=== PATIENT | female | born 1970 | race Caucasian/White ===

== ENCOUNTER 2020-05-15 09:00 | Outpatient (REF) | payer OTHER, SELFPAY ==
[2020-05-15 10:18] LABS: MANUAL DIFF FLAG NO
[2020-05-15 10:21] LABS: Basophils Percent Auto 0.4 % (0-2); Eosinophils Absolute Auto 0.1 X10*3/uL (0.0-0.4); Eosinophils Percent Auto 1.7 % (0-4); Imm Gran Abs Auto 0.02 X10*3/uL (0.00-0.03); Imm Gran Pct Auto 0.2 % (0.0-0.4); Lymphocytes Percent Auto 24.7 % (20-40); Mean Corpuscular HGB Conc 31.7 g/dl (31.0-35.0); Mean Corpuscular Hemoglobin 29.1 pg (27.0-33.0); Mean Corpuscular Volume 91.9 fL (80-98); Mean Platelet Volume 10.6 fL (9.4-12.3); Monocytes Absolute Auto 0.6 X10*3/uL (0.1-1.2); Monocytes Percent Auto 7.1 % (2-11); Neutrophils Absolute Auto 5.3 X10*3/uL (2.0-8.3); Neutrophils Percent Auto 65.9 % (45-73); Platelet Count 311 X10*3/uL (160-400); Red Blood Count 4.46 X10*6/uL (4.20-5.50); Red Cell Distribution Width 12.6 % (11.0-16.0)
[2020-05-15 10:34] LABS: Glucose Urine UA NEG (NEG); Leukocyte Esterase Urine NEG (NEG); Nitrite Urine NEG (NEG); PH 6.5 (5.0-8.0); Specific Gravity - Urine 1.015 (1.005-1.025); Urine Blood TRACE (NEG); Urine Ketones NEG (NEG); Urine Protein NEG (NEG-TRACE)
[2020-05-15 10:39] LABS: Appearance Urine CLEAR; Color Urine YELLOW
[2020-05-15 10:55] LABS: Alanine Aminotransferase 16 U/L (0-31); Albumin Level 4.3 g/dL (3.5-5.0); Alkaline Phosphatase 108 U/L (39-117); Anion Gap 12 (12-20); Aspartate Amino Transferase 14 U/L (5-31); Bilirubin Total 0.3 mg/dL (0.0-1.0); Blood Urea Nitrogen 14 mg/dL (9-16); Calcium 8.7 mg/dL (8.4-10.2); Carbon Dioxide 26 mmol/L (22-29); Chloride 106 mmol/L (96-108); Estimated Glomerular Filt Rate > 60; Glucose Random 80 mg/dL (60-115); Potassium 4.5 mmol/l (3.3-5.1); Sodium 139 mmol/L (135-145); Total Protein 6.7 g/dL (6.5-8.0)
[2020-05-15 11:00] LABS: TSH reflex Free T4 1.87 mIU/mL (0.32-4.0)
[2020-05-15 11:01] LABS: HBsAGNum1 0.26 S/CO (0.00-0.99); Hepatitis B Surface Antigen Negative (Negative); ~HepC Num1 0.06 S/CO (0.00-0.79); ~Hepatitis C Antibody Nonreactive (Nonreactive)
[2020-05-15 11:02] LABS: Bacteria Urine TRACE /LPF; Squamous Epithelial Cell Urine 1+ /LPF; WBC Urine 0-2 /HPF (0-4)
[2020-05-15 11:20] LABS: HBS Num1 0.44 mIU/mL (0-7.99); HBc Num1 0.11 S/CO (0.00-0.79); Hepatitis B Core Antibody Nonreactive (Nonreactive); ~Hepatitis B Surface Antibody NONREACTIVE (Nonreactive)
[2020-05-16 04:10] LABS: Hepatitis A Antibody IgM 0.13 Index (0-0.79); ~Hepatitis A Antibody IgM Nonreactive (Nonreactive)
[2020-05-23 18:07] LABS: Calprotectin, Fecal 15 mcg/g
== END 2020-05-15 09:01 | disposition home or self-care (01) ==
LOC: HO.LAB 09:00
PROVIDERS: PCP Internal Medicine; Visit Provider Internal Medicine Gastroenterology
DX: R10.13 Epigastric pain (principal); R30.0 Dysuria
CPT/HCPCS: 36415; 80053; 81001; 83993; 84443; 85025; 86704; 86706; 86709; 86803; 87338; 87340

== ENCOUNTER → 2020-08-10 08:38 | Outpatient (BNVA) | payer OTHER, SELFPAY | PROVIDERS: PCP Internal Medicine; Visit Provider Student in an Organized Health Care Education/Training Program | DX: M79.7 Fibromyalgia (principal) | CPT/HCPCS: 99202 ==

== ENCOUNTER → 2020-09-28 08:44 | Outpatient (BNVA) | payer OTHER, SELFPAY | PROVIDERS: Visit Provider Student in an Organized Health Care Education/Training Program ==

== ENCOUNTER → 2021-01-15 08:27 | Outpatient (BNVA) | payer OTHER, SELFPAY | PROVIDERS: PCP Internal Medicine; Visit Provider Internal Medicine Gastroenterology | CPT/HCPCS: Q3014 ==

== ENCOUNTER → 2021-01-23 07:49 | Outpatient (BNVA) | payer OTHER, SELFPAY | PROVIDERS: PCP Internal Medicine; Visit Provider Internal Medicine Gastroenterology | DX: R10.9 Unspecified abdominal pain (principal) | CPT/HCPCS: 91110 ==

== ENCOUNTER → 2021-04-23 09:51 | Outpatient (BNVA) | payer OTHER, SELFPAY | PROVIDERS: PCP Internal Medicine; Visit Provider Internal Medicine Gastroenterology | CPT/HCPCS: Q3014 ==

== ENCOUNTER → 2021-07-19 08:04 | Outpatient (BNVA) | payer OTHER, SELFPAY | PROVIDERS: PCP Internal Medicine; Visit Provider Internal Medicine Gastroenterology | DX: R10.13 Epigastric pain (principal) | CPT/HCPCS: 99212 ==

== ENCOUNTER 2021-08-15 07:50 | Outpatient (REF) | payer OTHER, SELFPAY ==
--- NOTE | ~2021-08-15 | US_ITS ---
EXAMINATION: US COMPLETE ABDOMEN WITH LIVER ELASTOGRAPHY CLINICAL INFORMATION: Epigastric pain. COMPARISON: None. TECHNIQUE: Real-time imaging of the abdominal viscera. Noninvasive ultrasound liver fibrosis assessment is performed using Abhishek ElastPQ point quantification shear wave elastography (2D-SWE) with a C5-2 MHz transducer. Multiple elastography samples are obtained. FINDINGS: PANCREAS: Normal. The visualized pancreatic head and body are normal in appearance. The remainder of the pancreas is obscured from visualization by the overlying bowel gas. ABDOMINAL AORTA: The proximal, middle, and distal aortic segments are normal in caliber. INFERIOR VENA CAVA: Visualized portions are normal. LIVER: The liver demonstrates normal size, contour and increased echogenicity. No focal lesion or intrahepatic biliary duct dilatation. The right lobe measures 16.7 cm in length. The left lobe measures 11.9 cm in length. Portal flow is hepatopedal. Shear wave liver elastography median stiffness is 1.33 m/s (reference: normal median stiffness is 1.3 m/s or less). IQR/median stiffness to assess sampling precision is 1.05 (reference: good quality data set is IQR/median stiffness of 0.15 or less). GALLBLADDER: Normal. The gallbladder is physiologically distended without evidence of stones, sludge, polyps, wall thickening or pericholecystic fluid. COMMON BILE DUCT: Normal in caliber measuring 0.3 cm in diameter. RIGHT KIDNEY: Normal. No hydronephrosis. No renal calculi or focal parenchymal lesions. The kidney measures 11.0 cm in maximum dimension. LEFT KIDNEY: There is an anechoic cyst upper/mid pole measuring 0.8 x 0.5 x 0.6 cm. No hydronephrosis. No renal calculi or focal parenchymal lesions. The kidney measures 10.7 cm in maximum dimension. SPLEEN: Normal. The spleen measures 10.5 cm in maximum dimension. FREE FLUID: None. US/US abdomen comp w elastography IMPRESSION: 1. Diffuse hepatic steatosis without any focal lesion. 2. Cysts upper/mid pole left kidney. 3. Liver elastography: Median liver stiffness is 1.33m/s suggestive of high probability normal. REFERENCE: Society of Radiologists in Ultrasound Liver Stiffness Thresholds (2020): LIVER STIFFNESS THRESHOLDS: *Liver Stiffness equal or less than 1.3 m/s: High probability of being normal. *Liver Stiffness less than 1.7 m/s: In the absence of other known clinical signs, rules out compensated advanced chronic liver disease. *Liver Stiffness 1.7-2.1 m/s: Suggestive of compensated advanced chronic liver disease but need further test for confirmation. *Liver Stiffness over 2.1 m/s: Rules in compensated advanced chronic liver disease. *Liver Stiffness over 2.4 m/s: Suggestive of clinically significant portal hypertension. QUALITY OF DATA SET: *IQR/Median value equal or less than 0.15 implies a quality data set. *IQR/Median value over 0.15 implies a poor quality data set. SIGNIFICANT CHANGE FROM PRIOR EXAM: Significant change if liver stiffness measurement is 10% or greater from prior exam. OTHER CONSIDERATIONS: The stage of liver fibrosis may be overestimated in the setting of acute hepatitis, liver inflammation, elevated liver function tests, hepatic vascular congestion, obstructive cholestasis, non-fasting state, and infiltrative diseases such as amyloidosis and lymphoma. In some patients with NAFLD, the liver stiffness thresholds for compensated advanced chronic liver disease may be lower. In causes other than viral hepatitis and NAFLD, liver stiffness thresholds are not well established.
[2021-08-15 08:32] LABS: Gamma Glutamyl Transpeptidase 41 U/L (7-33)
[2021-08-16 15:26] LABS: Immunoglobulin G 1014 mg/dL (600-1640)
[2021-08-20 08:21] LABS: Transglutaminase Ab IgG <1.0 U/mL
[2021-08-20 09:42] LABS: Anti Nuclear Antibody Screen POSITIVE (NEGATIVE)
[2021-08-20 14:11] LABS: Soluble Liver Ag Autoantibody <20.1 U (0.0-20.0)
[2021-08-21 15:17] LABS: Mitochondrial Antibodies NEGATIVE (NEGATIVE)
[2021-08-21 16:11] LABS: Angiotensin Converting Enzyme 18.7 U/L (9-67)
[2021-08-21 21:52] LABS: Smooth Muscle Antibody <20 U (<20)
[2021-08-22 21:06] LABS: Alk.Phos Iso. Macrohepatic 0 % (<=0); Alk.Phos Isoenzymes Bone 32 % (28-66); Alk.Phos Isoenzymes Intest 5 % (1-24); Alk.Phos Isoenzymes Liver 63 % (25-69); Alk.Phos Isoenzymes Placental 0 % (<=0); Alk.Phos Isoenzymes Total 112 U/L (37-153)
== END 2021-08-15 07:51 | disposition home or self-care (01) ==
LOC: HO.US 07:50
PROVIDERS: Visit Provider Internal Medicine Gastroenterology
DX: R10.13 Epigastric pain (principal); R10.33 Periumbilical pain; G89.29 Other chronic pain; R79.89 Other specified abnormal findings of blood chemistry; K52.839 Microscopic colitis, unspecified; R79.82 Elevated C-reactive protein (CRP)
CPT/HCPCS: 36415; 76705; 76981; 82164; 82784; 82977; 83520; 84080; 86015; 86038; 86039; 86255; 86256; 86364

== ENCOUNTER → 2021-12-20 09:12 | Outpatient (BNVA) | payer OTHER, SELFPAY | PROVIDERS: PCP Internal Medicine; Visit Provider Internal Medicine Gastroenterology | DX: Z71.2 Person consulting for explanation of examination or test findings (principal) | CPT/HCPCS: Q3014 ==

== ENCOUNTER → 2022-03-10 08:47 | Outpatient (BNVA) | payer OTHER, SELFPAY | PROVIDERS: PCP Internal Medicine; Visit Provider Internal Medicine Gastroenterology | DX: R10.13 Epigastric pain (principal); R79.89 Other specified abnormal findings of blood chemistry | CPT/HCPCS: Q3014 ==

== ENCOUNTER 2022-10-24 09:17 | Outpatient (REF) | payer OTHER, SELFPAY ==
[2022-10-24 10:14] LABS: MANUAL DIFF FLAG NO
[2022-10-24 10:30] LABS: Basophils Percent Auto 0.3 % (0-2); Eosinophils Absolute Auto 0.2 X10*3/uL (0.0-0.4); Eosinophils Percent Auto 2.4 % (0-4); Hematocrit 39.2 % (37.0-47.0); Hemoglobin 12.4 g/dl (12.0-16.0); Imm Gran Abs Auto 0.02 X10*3/uL (0.00-0.03); Imm Gran Pct Auto 0.3 % (0.0-0.4); Lymphocytes Percent Auto 26.5 % (20-40); Mean Corpuscular HGB Conc 31.6 g/dl (31.0-35.0); Mean Corpuscular Volume 88.5 fL (80.0-98.0); Mean Platelet Volume 10.2 fL (9.4-12.3); Monocytes Absolute Auto 0.4 X10*3/uL (0.1-1.2); Monocytes Percent Auto 4.9 % (2-11); Neutrophils Absolute Auto 4.8 x10*3/uL (2.0-8.3); Neutrophils Percent Auto 65.6 % (45-73); Platelet Count 315 X10*3/uL (160-400); Red Blood Count 4.43 X10*6/uL (4.20-5.50); Red Cell Distribution Width 12.9 % (11.0-16.0); White Blood Count 7.4 X10*3/uL (4.8-10.8)
[2022-10-24 10:55] LABS: Prothrombin Time 11.5 SEC (10.0-13.1)
[2022-10-24 11:09] LABS: Alanine Aminotransferase 18 U/L (0-31); Albumin Level 3.9 g/dL (3.5-5.0); Alkaline Phosphatase 118 U/L (39-117); Anion Gap 11 (12-20); Aspartate Amino Transferase 14 U/L (5-31); Bilirubin Total 0.4 mg/dL (0.0-1.0); Blood Urea Nitrogen 14 mg/dL (9-16); Calcium 9.5 mg/dL (8.4-10.2); Carbon Dioxide 26 mmol/L (22-29); Chloride 107 mmol/L (96-108); Estimated Glomerular Filt Rate > 60; Glucose Random 122 mg/dL (60-115); Potassium 3.9 mmol/L (3.3-5.1); Sodium 140 mmol/L (135-145); Total Protein 6.9 g/dL (6.5-8.0)
[2022-10-24 11:30] LABS: Ferritin 85 ng/mL (10-250); Vitamin D 25-OH Total 50.5 ng/mL (>30)
[2022-10-24 11:33] LABS: Folate 16.4 ng/mL (> or = 4.0); Vitamin B12 628 pg/mL (200-900)
[2022-10-29 03:44] LABS: Zinc 79 mcg/dL (60-130)
[2022-10-30 02:43] LABS: Vitamin A 68 mcg/dL (38-98)
[2022-10-30 02:43] LABS: Alpha-Tocopherol 15.5 mg/L (5.7-19.9); Beta-Gamma Tocopherol <1.0 mg/L (<=4.3)
[2022-10-31 14:38] LABS: Vitamin B6 4.8 ng/mL (2.1-21.7)
[2022-10-31 16:17] LABS: Vitamin C 0.8 mg/dL (0.3-2.7)
[2022-10-31 16:39] LABS: Vitamin K1 278 pg/mL (130-1500)
[2022-11-01 20:44] LABS: Nicotinamide 29 ng/mL; Vit B3 - Nicotinic Acid <20 ng/mL
[2022-11-01 21:34] LABS: Vitamin B5 (Pantothenic Acid) 48 ng/mL (<275)
[2022-11-03 00:18] LABS: Vitamin B1 10 nmol/L (8-30)
== END 2022-10-24 09:18 | disposition home or self-care (01) ==
LOC: HO.LAB 09:17
PROVIDERS: Visit Provider Internal Medicine Gastroenterology
DX: R10.13 Epigastric pain (principal); K75.81 Nonalcoholic steatohepatitis (NASH); E46 Unspecified protein-calorie malnutrition; M25.50 Pain in unspecified joint; R79.89 Other specified abnormal findings of blood chemistry
CPT/HCPCS: 36415; 80053; 82180; 82306; 82607; 82728; 82746; 83735; 84207; 84425; 84446; 84590; 84591; 84597; 84630; 85025; 85610; 99212

== ENCOUNTER 2022-11-12 08:53 | Outpatient (REF) | payer OTHER, SELFPAY ==
--- NOTE | ~2022-11-12 | US_ITS ---
EXAMINATION: US ABDOMEN LIMITED WITH LIVER ELASTOGRAPHY CLINICAL INFORMATION: COCHRAN. COMPARISON: None available. TECHNIQUE: Real-time imaging of the abdominal viscera. Noninvasive ultrasound liver fibrosis assessment is performed using Abhishek ElastPQ point quantification shear wave elastography (2D-SWE) with a C5-2 MHz transducer. Multiple elastography samples are obtained. FINDINGS: PANCREAS: Normal. The visualized pancreatic head and body are normal in appearance. The remainder of the pancreas is obscured from visualization by the overlying bowel gas. LIVER: There is increased echogenicity consistent with fatty infiltration/hepatocellular disease. No focal mass or intrahepatic bile duct dilatation is seen. The right lobe measures 16.7 cm in length. The left lobe measures 11.6 cm in length. Portal flow is hepatopedal. Shear wave liver elastography median stiffness is 1.32 m/s (reference: normal median stiffness is 1.3 m/s or less). IQR/median stiffness to assess sampling precision is 0.13 (reference: good quality data set is IQR/median stiffness of 0.15 or less). GALLBLADDER: Normal. The gallbladder is physiologically distended without evidence of stones, sludge, polyps, wall thickening or pericholecystic fluid. COMMON BILE DUCT: Normal in caliber measuring 0.5 cm in diameter. RIGHT KIDNEY: Normal. No hydronephrosis. No renal calculi or focal parenchymal lesions. The kidney measures 11.4 cm in maximum dimension. FREE FLUID: None. US/US abdomen guan w elastography IMPRESSION: 1. Findings consistent with fatty infiltration/hepatocellular disease of the liver. 2. Liver elastography: In the absence of other known clinical signs, measurements rule out compensated advanced chronic liver disease. If there are known clinical signs, further testing may be needed for confirmation. Liver stiffness measurement is without significant change from prior exam (change under 10%). REFERENCE: Society of Radiologists in Ultrasound Liver Stiffness Thresholds (2020): LIVER STIFFNESS THRESHOLDS: *Liver Stiffness equal or less than 1.3 m/s: High probability of being normal. *Liver Stiffness less than 1.7 m/s: In the absence of other known clinical signs, rules out compensated advanced chronic liver disease. *Liver Stiffness 1.7-2.1 m/s: Suggestive of compensated advanced chronic liver disease but need further test for confirmation. *Liver Stiffness over 2.1 m/s: Rules in compensated advanced chronic liver disease. *Liver Stiffness over 2.4 m/s: Suggestive of clinically significant portal hypertension. QUALITY OF DATA SET: *IQR/Median value equal or less than 0.15 implies a quality data set. *IQR/Median value over 0.15 implies a poor quality data set. SIGNIFICANT CHANGE FROM PRIOR EXAM: Significant change if liver stiffness measurement is 10% or greater from prior exam. OTHER CONSIDERATIONS: The stage of liver fibrosis may be overestimated in the setting of acute hepatitis, liver inflammation, elevated liver function tests, hepatic vascular congestion, obstructive cholestasis, non-fasting state, and infiltrative diseases such as amyloidosis and lymphoma. In some patients with NAFLD, the liver stiffness thresholds for compensated advanced chronic liver disease may be lower. In causes other than viral hepatitis and NAFLD, liver stiffness thresholds are not well established.
== END 2022-11-12 08:54 | disposition home or self-care (01) ==
LOC: HO.US 08:53
PROVIDERS: PCP Internal Medicine; Visit Provider Internal Medicine Gastroenterology
DX: E46 Unspecified protein-calorie malnutrition (principal); K74.60 Unspecified cirrhosis of liver; K75.81 Nonalcoholic steatohepatitis (NASH); M25.50 Pain in unspecified joint; R10.13 Epigastric pain; R79.89 Other specified abnormal findings of blood chemistry
CPT/HCPCS: 76705; 76981

== ENCOUNTER 2024-09-05 10:57 | Outpatient (AMB) | payer OTHER, SELFPAY ==
--- NOTE | 2024-09-05 11:09 | MHC.OFFVIS ---
Vital Signs 09/05/24 11:21 09/05/24 11:25 Height 5 ft 6 in 5 ft 6 in Weight 241 lb BMI 38.9 BP 153/79 H Blood Pressure Location Lt brachial Lt brachial Position Sitting Sitting Pulse 72 Pulse Oximetry (%) 98 Oxygen Delivery Method Room Air Intake Visit Reasons: GERD f/u Intake Note: Iris presents in the office as a follow up for GERD. Patient cc: GERD and constipation. Administrative Program Specialist Required: No Accompanied by: Self / Same As Patient Allergies acetaminophen [Percocet] Allergy (Intermediate, Verified 09/05/24 11:23) Anaphylaxis morphine Allergy (Intermediate, Verified 09/05/24 11:23) Anaphylaxis oxycodone Allergy (Unknown, Verified 09/05/24 11:23) Anaphylaxis HPI HPI GERD f/u: Details: 53 y/o f w/ hx of anxiety, fibromyalgia, asthma, ERIC, and hysterectomy being seen for f/u RECAP: Hx of cholecystectomy and c diff 2017 had vancomycin for c diff EGD/colon 2013- active colitis and mild gastric inflammation tried on PPI, pepcid She was having c/o ongoing abdominal pain, feels like burning, or stabbing sometimes, can be 10/10, going on for 5 years, worse with bending and lifting ongoing trouble swallowing (had u/s neck was normal by PCP) no blood, stool is normal, better since trying metamucil and miralax was given rifaximin with some benefitshe modifies diet which is easily digested kenalog injection given which resolved her abdo pain on right flank she was taking welchol and helped diarrhea At visit:05/06/19=== GERD and diarrhea were well controlle,d she had no complaints VCE was ordered and was normal apart from rapid transit US: 08/2021- fatty liver, renal cysts, labs with nml LFT Ba swallow: 10/2021 hiatal hernia 4 cm with GERD INTERIM: she has a lot of stress, going thru marital issues she has issues with constipation she takes lansoprazoole and it helps she finds miralax is good for the constiipation sleep is good EXAM: GENERAL: The patient is well developed and nontoxic. VITAL SIGNS:see workflow HEENT: Nonicteric sclerae, PERRLA, EOMI. Oropharynx clear. Moist mucous membranes. Conjunctivae appear well perfused. No thyroid mass. CHEST: Chest wall is nontender. HEART: Regular rate and rhythm without murmurs. LUNGS: Clear to auscultation bilaterally. ABDOMEN: Soft, positive bowel sounds, nontender, no organomegaly.no flank tenderness SKIN: No rash, no excessive bruising, petechiae, or purpura. NEUROLOGIC: Cranial nerves II-XII intact without motor/sensory deficit. Psych- nml A/P: 1/ rapid gastric emptying and GERD, some ongoing regurgitation 2/ fatty liver, nml LFT in past 3/ constipation - she wants to hold on colonoscopy PLAN: 1/ she refuses EGD and wants to hold on colonoscopy, 2/ will try miralax again once or tiwce a day with high fiber intake and increase water to 5-6 glasses a day 3/ Us liver and lab work [facility] Medical History Anxiety Asthma Fibromyalgia GERD (gastroesophageal reflux disease) History of Holter monitoring Surgical History Hx of hysterectomy Hx of colonoscopy Hx of endoscopy Hx laparoscopic cholecystectomy Family History Father Stomach cancer Brother No problems noted. Sister No problems noted. Son No problems noted. Social History Alcohol intake: never Physical Exam Vital Signs: Last Vital Signs Pulse 72 09/05/24 11:25 BP 153/79 H 09/05/24 11:25 Pulse Ox 98 09/05/24 11:25 Oxygen Delivery Method Room Air 09/05/24 11:25 BMI result Body Mass Index 38.9 Assessment & Plan Assessment & Plan (1) Abnormal LFTs: Code(s): R79.89 - Other specified abnormal findings of blood chemistry Category: Medical Plan: as above Orders: Orders Complete Blood Count Auto Diff Today R79.89 - Other specified abnormal findings of blood chemistry Liver Fibrosis Pnl Today R79.89 - Other specified abnormal findings of blood chemistry Comprehensive Met. Panel Today K75.81 - Nonalcoholic steatohepatitis (COCHRAN), R79.89 - Other specified abnormal findings of blood chemistry TSH reflex Free T4 Today R79.89 - Other specified abnormal findings of blood chemistry US abdomen guan w elastography Today K74.60 - Unspecified cirrhosis of liver, K75.81 - Nonalcoholic steatohepatitis (COCHRAN), R79.89 - Other specified abnormal findings of blood chemistry Medications: Refilled polyethylene glycol 3350 (Miralax) 17 grams PO DAILY 510 grams 3RF Coding Level of Care Code Est Pt Level 4 (64050) Diagnoses Abnormal LFTs R79.89
[2024-09-05 11:25] VITALS: BP 153/79; PULSE 72; O2SAT 98; BMI 38.9
--- OUTSIDE RECORDS SUMMARY | 2024-09-05 13:11 | XMS_ITS | Clinical Summary ---
Author Organization [facility] ity Address [address] [place] [address] Care Team Providers Care Database Management Specialist Name Role Phone Unavailable Primary Care Provider Unavailabl e Social History Tobacco Use Types Packs/Day Years Used Date Smoking Tobacco: Never Assessed Comments Unknown Sex and Gender Information Value Date Recorded Sex Assigned at Not on file Legal Sex Female 5:40 PM EST Gender Identity Not on file Sexual Orientation Not on file Plan of Treatment Health Maintenance Due Date Last Done Comments Breast Cancer Screening 1969 DTaP,Tdap,and Td Vaccines (1 - Tdap) 1988 Hepatitis B Vaccines (1 of 3 - 19+ 3-dose series) 1988 Cervical Cancer Screening: P ap Smear 1990 Pneumococcal Vaccine: 50+ Ye ars (1 of 1 - PCV) 09/10/2019 Zoster Vaccines (1 of 2) 09/10/2019 COVID-19 Vaccine ( - 2023-2 5 season) 2024 Influenza Vaccine (Season Ended) 2025 HIB Vaccines Aged Out No longer eligi ble based on patient's age to complete this topic HPV Vaccines Aged Out No longer eligi ble based on patient's age to complete this topic Hepatitis A Vaccines Aged Out No long er eligible based on patient's age to complete this topic IPV Vaccines Aged Out No longer eligi ble based on patient's age to complete this topic MMR Vaccines Aged Out No longer eligi ble based on patient's age to complete this topic Meningococcal ACWY Vaccine Aged Out N o longer eligible based on patient's age to complete this topic Meningococcal B Vaccine Aged Out No l onger eligible based on patient's age to complete this topic Pneumococcal Vaccine: Pediat rics (0 to 5 Years) and At-Risk Patients (6 to 64 Years) Aged Out No longer eligible b ased on patient's age to complete this topic RSV Immunization Patients Un nick 20 months Aged Out No longer eligible b ased on patient's age to complete this topic Varicella Vaccines Aged Out No longer eligible based on patient's age to complete this topic
== END 2024-09-05 12:01 | disposition home or self-care (01) ==
LOC: HO.HGI 10:57
PROVIDERS: PCP Internal Medicine; Visit Provider Internal Medicine Gastroenterology
DX: R79.89 Other specified abnormal findings of blood chemistry (principal)
CPT/HCPCS: 99214

== ENCOUNTER → 2024-09-05 10:57 | Outpatient (BNVA) | payer OTHER, SELFPAY | PROVIDERS: PCP Internal Medicine; Visit Provider Internal Medicine Gastroenterology | DX: R79.89 Other specified abnormal findings of blood chemistry (principal); K74.60 Unspecified cirrhosis of liver; K21.9 Gastro-esophageal reflux disease without esophagitis; K75.81 Nonalcoholic steatohepatitis (NASH) | CPT/HCPCS: 99212 ==

== ENCOUNTER 2024-09-06 07:10 | Outpatient (REF) | payer OTHER, SELFPAY ==
--- OUTSIDE RECORDS SUMMARY | 2024-09-06 07:13 | XMS_ITS | Data Portability ---
Author Organization [facility] [place] [facility] Address [address] [place] [id number] Care Team Providers Care Brainer Name Role Phone HIM [place] OTHER Assessment Encounter Date Assessment Date Assessment LastModified by Organization Details LastModified Time 08/20/2023 08/20/2023 I provided real -time medical direction via phone for this encounter and was available for additional phone-based assistance as needed. I have reviewed and agree with the Assessment and Plan as documented by the Tennis Ball Coverer Hand. Patient given the opportunity to ask questions. Our service contacted for an assessment of: recurrent swelling of her finger As per above, patient developed what sounds like may have started as a nail infection and then progressed to localized swelling of her finger that had to be I&D in the emergency department. She was sent home on antibiotics and continues to take the antibiotics as prescribed. She noted over the past 12 to 18 hours and increase in the swelling again passed the point where it had previously been swollen. Please see uploaded pictures. She denies fever or chills. Per senior auditor on the scene, Her fingers significantly slow swollen and there is surrounding erythema. Impression: Recurrent swelling and possible recurrence of a drainable fluid collection Plan: sent to urgent care for reassessment of an I&D. [email or web address] Not available 08/20/2023 14:16:39 Plan of Treatment Reminders Order Date Submit Date Provider Last Modified By Organization Details Last Modified Time Details Appointments None record ed. Lab None record ed. Referral None record ed. Procedures None record ed. Surgeries None record ed. Imaging None record ed. Medication Orders None record ed. Patient TargetsNo targets recorded. Patient InstructionsNo instructions recorded. Reason for Referral None Reported. Medical Equipment None Reported. Medications Name Sig Start Date Stop Date Status Note LastModified by Organization Details LastModified Time delivery fee active Not Available Not Available Not Available cyclobenzapri ne 10 mg tablet active Not Available Not Available Not Available atorvastatin 40 mg tablet active Not Available Not Available Not Available metformin 500 mg tablet active Not Available Not Available No t Available clonidine HCl 0.1 mg tablet active Not Available Not Availabl e Not Available atorvastatin 20 mg tablet active Not Available Not Available Not Available prazosin 1 mg capsule active Not Available Not Available Not Available naltrexone 50 mg tablet active Not Available Not Available No t Available famotidine 40 mg tablet active Not Available Not Available No t Available methylphenida te 5 mg tablet active Not Available Not Available Not Available topiramate 25 mg tablet TAKE 2 TABLETS BY MOUTH TWICE DAILY active Not Available Not Available No t Available sulfamethoxaz ole 800 mg-trimethopr im 160 mg tablet active Not Available Not Available Not Available famotidine 20 mg tablet active Not Available Not Available No t Available dicyclomine 20 mg tablet active Not Available Not Available Not Available carboxymethyl cellulose sodium 0.5 % eye drops active Not Available Not Available No t Available fluvoxamine 100 mg tablet active Not Available Not Availabl e Not Available cephalexin 500 mg capsule active Not Available Not Available Not Available buspirone 10 mg tablet active Not Available Not Available No t Available lansoprazole 30 mg capsule,delay ed release active Not Available Not Available N ot Available montelukast 10 mg tablet active Not Available Not Available Not Available metoprolol succinate ER 25 mg tablet,extend ed release 24 hr TAKE 1 TABLET BY MOUTH DAILY active Not Available Not Available No t Available polyethylene glycol 3350 17 gram/dose oral powder active Not Available Not Available Not Available albuterol sulfate HFA 90 mcg/actuation aerosol inhaler INHALE 2 PUFFS BY MOUTH EVERY 6 HOURS NEEDED FOR WHEEZING OR SHORTNESS OF BREATH active Not Available Not Available No t Available hydroxyzine HCl 10 mg tablet active Not Available Not Available Not Available topiramate 100 mg tablet active Not Available Not Availabl e Not Available metformin ER 500 mg tablet,extend ed release 24 hr TAKE 1 TABLET BY MOUTH DAILY ALONG EVENING MEAL active Not Available Not Available No t Available topiramate 50 mg tablet active Not Available Not Available No t Available aripiprazole 2 mg tablet active Not Available Not Available Not Available Symbicort 160 mcg-4.5 mcg/actuation HFA aerosol inhaler INHALE 2 PUFFS BY MOUTH TWICE DAILY active Not Available Not Available No t Available cholecalcifer ol (vitamin D3) 1,250 mcg (50,000 unit) capsule active Not Available Not Available Not Available estradiol 10 mcg vaginal tablet active Not Available Not Available Not Available Vitals Date Recorded Respiratory rate Oxygen saturation Oxygen saturation in Arterial blood by Pulse oximetry Body temperature Heart rate Systolic blood pressure Diastolic blood pressure Provider Name and Address Organization Details Last Updated DateTime 4 18 /min 96 % 96 % 98.3 [degF] 94 /min 116 mm[Hg] 78 mm[Hg] Not Available [facility] - production 4 14:13:10 Social History None recorded. Functional Status None recorded. Mental Status None recorded. Family History Nothing Reported. Medical History No medical history recorded. Gynecological HistoryNo gynecological history recorded. Obstetrics History GPAL:G 0 P 0 0 0 0 Past Encounters Encounter ID Performer Location Encounter Start Date Encounter Closed Date Diagnosis/Indication Diagnosis SNOMED-CT Code Diagnosis ICD10 Code Diagnosis Note [id number] Sara Clarke MD Main - [address] [address] 08/20/2023 14:13:01 08/20/2023 14:51:28 Swelling of finger of right hand [id number] R60.0 Health Concerns Section Related Observation LastModified by Organization Detai ls LastModified Time None Recorded Concern Status LastModified by Organization Details LastModified Time None Recorded Advance Directives Directive None Recorded Payers Encounter Date Sequence Insurance Name Policy Number Policy [place] Covered Member ID [place] Member ID Guarantor Name 08/20/2023 1 [facility] - DOS ON OR AFTER 2022 - DUAL ELIGIBLE - NURSING HOME OPTIONS AND ONE CARE (MEDICARE REPLACEMENT/ADV ANTAGE - HMO) Michelle Sheikh [id number] Michelle Sheikh Notes Date Note Type Note Provider Name and Address Organization Details Recorded Time 08/20/2023 text/html [facility] Nurse Triage Notes (Harvinder Vale): Reason For Request: Pt reporting her left hand ring finger has been pinched but that she went to the ER and was given antibiotics>under the impression Chief Complaints: Wound Care Comments: Wound care requested =HPI reviewed ..................... ..................... ..................... ..................... ..................... ..................... ............... Tennis Ball Coverer Hand Note From Dash Howell: Dispatched to above address for infection of finger. On arrival patient 52 y/o F, met SC8 at the door, AOX4, airway patent, speaking in full sentences, good color, in no apparent distress, walking unassisted with normal gait. Patient states about 3 weeks ago was doing some yard work, later in the day began having some minor pain and swelling in tip of L ring finger, has been getting worse, went to the ER on Thursday for this has I&D performed and prescribed ABX, has been getting worse again since. Patients vital signs checked. On exam patients L ring finger very swollen red and warm to touch, small healing laceration on the inside of her finger., limited mobility, rates pain as 9/10. [facility] contacted, spoke with Dr. Clarke, advised of patient complaints and exam findings, advised patient likely need additional I&D, needs to be seen at the ER for this. Patient advised of [facility] recommendations and red flags. Patient reports she will drive herself to the ER for this, refuses ambulance. Patient has no additional questions or concerns at this time. SC8 clear. EOR. ..................... ..................... ..................... ..................... ..................... ..................... ............... Disposition: Fulfilled Sara Clarke MD [address] [facility],[address], [place], [address], [facility] [facility] 08/20/2023 14:16:55 OBGyn Episode No OBEpisode recorded.
--- OUTSIDE RECORDS SUMMARY | 2024-09-06 07:13 | XMS_ITS | Clinical Summary ---
Author Organization [facility] ity Address [address] [place] [address] Care Team Providers Care Crepe Sole Scourer Name Role Phone Unavailable Primary Care Provider [...]
[2024-09-06 07:23] LABS: MANUAL DIFF FLAG NO
[2024-09-06 08:26] LABS: Basophils Percent Auto 0.6 % (0-2); Eosinophils Absolute Auto 0.3 X10*3/uL (0.0-0.4); Eosinophils Percent Auto 4.3 % (0-4); Hematocrit 38.6 % (37.0-47.0); Hemoglobin 12.3 g/dl (12.0-16.0); Imm Gran Abs Auto 0.01 X10*3/uL (0.00-0.03); Imm Gran Pct Auto 0.2 % (0.0-0.4); Lymphocytes Absolute Auto 2.3 X10*3/uL (1.2-4.9); Lymphocytes Percent Auto 36.1 % (20-40); Mean Corpuscular HGB Conc 31.9 g/dl (31.0-35.0); Mean Corpuscular Hemoglobin 28.6 pg (27.0-33.0); Mean Corpuscular Volume 89.8 fL (80.0-98.0); Mean Platelet Volume 10.2 fL (9.4-12.3); Monocytes Absolute Auto 0.4 X10*3/uL (0.1-1.2); Monocytes Percent Auto 6.2 % (2-11); Neutrophils Absolute Auto 3.3 x10*3/uL (2.0-8.3); Neutrophils Percent Auto 52.6 % (45-73); Platelet Count 293 X10*3/uL (160-400); Red Cell Distribution Width 13.1 % (11.0-16.0); White Blood Count 6.3 X10*3/uL (4.8-10.8)
[2024-09-06 09:29] LABS: Alanine Aminotransferase 14 U/L (0-31); Albumin Level 3.9 g/dL (3.5-5.0); Alkaline Phosphatase 101 U/L (39-117); Anion Gap 11 (12-20); Aspartate Amino Transferase 17 U/L (5-31); Bilirubin Total 0.4 mg/dL (0.0-1.0); Blood Urea Nitrogen 14 mg/dL (9-16); Carbon Dioxide 30 mmol/L (22-29); Chloride 107 mmol/L (96-108); Estimated Glomerular Filt Rate > 60; Glucose Random 163 mg/dL (60-115); Potassium 4.5 mmol/L (3.3-5.1); Sodium 143 mmol/L (135-145); TSH reflex Free T4 3.75 uIU/mL (0.32-4.0); Total Protein 6.7 g/dL (6.5-8.0)
[2024-09-10 18:42] LABS: FIB-ALT 9 U/L (6-29); FIB-Alpha-2-Macroglobulin 100 mg/dL (106-279); FIB-Apolipoprotein A1 159 mg/dL (101-198); FIB-GGT 15 U/L (3-70); FIB-Haptoglobin 302 mg/dL (43-212); FIB-Total Bilirubin 0.3 mg/dL (0.2-1.2); Liver Fibrosis Score 0.02; Liver Fibrosis Stage F0; Nec Inflam Act Grade A0; Nec Inflam Act Score 0.01; Reference ID 5467254
== END 2024-09-06 07:11 | disposition home or self-care (01) ==
LOC: HO.LAB 07:10
PROVIDERS: PCP Internal Medicine; Visit Provider Internal Medicine Gastroenterology
DX: R79.89 Other specified abnormal findings of blood chemistry (principal); K75.81 Nonalcoholic steatohepatitis (NASH)
CPT/HCPCS: 36415; 80053; 81596; 84443; 85025

== ENCOUNTER 2024-12-01 07:37 | Outpatient (REF) | payer OTHER, SELFPAY ==
--- NOTE | ~2024-12-01 | US_ITS ---
EXAMINATION: US ABDOMEN LIMITED WITH LIVER ELASTOGRAPHY HISTORY: K75.81 - Nonalcoholic steatohepatitis (COCHRAN) TECHNIQUE: Real-time grayscale ultrasound imaging of the right upper quadrant was performed and images were reviewed. COMPARISON: Comparison is made with the prior examination dated 11/12/2022. FINDINGS: Liver: The right lobe of the liver measures 18.4 cm in size. The left lobe of the liver measures 11.4 cm in size. The liver demonstrates increased echotexture, consistent with steatosis. There are areas of focal fatty sparing in the taiwo hepatis. No focal mass or intrahepatic biliary ductal dilatation is identified. There is normal hepatopedal flow in the portal vein. Ultrasound elastography of the liver was performed with 10 separate measurements of the liver parenchyma with the patient in the supine position. Measurements were obtained approximately 2 cm below Renée's capsule and perpendicular to the capsule. The median shear wave velocity is 1.56 m/s (previously 1.32 m/s). The interquartile range/median (IQR/median) is 0.06. Gallbladder and biliary tree: The gallbladder is surgically absent. The common bile duct is normal in caliber measuring 4 mm. Right Kidney: The right kidney measures 10.6 cm in length. The right kidney is unremarkable, without evidence of masses, hydronephrosis, or calculi. Pancreas: The pancreatic head, neck, and body are unremarkable. The pancreatic tail is obscured by bowel gas. Abdominal aorta and inferior vena cava: The visualized portions of the abdominal aorta and inferior vena cava are normal in caliber. There is no free fluid in the right upper quadrant. US/US abdomen guan w elastography IMPRESSION: Hepatomegaly and hepatic steatosis. The median shear wave velocity in the liver is 1.56 m/s, corresponding to a median liver stiffness of 7.53 kPa. The IQR/median value is 0.06. This is indicative of a quality data set. Findings are indicative of a low elastography value which rules out advanced chronic liver disease in asymptomatic patients. REFERENCE: Society of Radiologists in Ultrasound Liver Stiffness Thresholds (2020): LIVER STIFFNESS THRESHOLDS: *Shear wave velocity less than 1.3 m/s (Liver Stiffness equal or less than 5 kPa): High probability of being normal. *Shear wave velocity less than 1.7 m/s (Liver Stiffness less than 9 kPa): In the absence of other known clinical signs, rules out compensated advanced chronic liver disease. *Shear wave velocity between 1.7-2.1 m/s (Liver Stiffness 9-13 kPa): Suggestive of compensated advanced chronic liver disease but need further test for confirmation. *Shear wave velocity between 2.1-2.4 m/s (Liver Stiffness 13-17 kPa): Rules in compensated advanced chronic liver disease. *Shear wave velocity greater than 2.4 m/s (Liver Stiffness over 17 kPa): Suggestive of clinically significant portal hypertension. QUALITY OF DATA SET: *IQR/Median value equal or less than 0.15 implies a quality data set. *IQR/Median value over 0.15 implies a poor quality data set. SIGNIFICANT CHANGE FROM PRIOR EXAM: Significant change if liver stiffness measurement is 10% or greater from prior exam. OTHER CONSIDERATIONS: The stage of liver fibrosis may be overestimated in the setting of acute hepatitis, liver inflammation, elevated liver function tests, hepatic vascular congestion, obstructive cholestasis, non-fasting state, and infiltrative diseases such as amyloidosis and lymphoma. In some patients with NAFLD, the liver stiffness thresholds for compensated advanced chronic liver disease may be lower. In causes other than viral hepatitis and NAFLD, liver stiffness thresholds are not well established. Electronically signed by: Babatunde Yarbrough MD 12/01/2024 08:30 AM EDT
--- OUTSIDE RECORDS SUMMARY | 2024-12-01 07:38 | XMS_ITS | Data Portability ---
Author Organization [employer] [facility], [facility] Address [address] [place] [address] Care Team Providers Care Polysomnographic Technician Name Role Phone HIM [place] OTHER Assessment Encounter Date Assessment Date Assessment LastModified by Organization Details LastModified Time 08/20/2023 08/20/2023 I provided real -time medical direction via phone for this encounter and was available for additional phone-based assistance as needed. I have reviewed and agree with the Assessment and Plan as documented by the Risk Mgr. Patient given the opportunity to ask questions. [...] pictures. She denies fever or chills. Per flume ride operator on the scene, Her fingers significantly slow [...] Pulse oximetry Body temperature Heart rate Systolic And Diastolic Provider Name and Address Organization Details Last Updated DateTime 4 18 /min 96 % 96 % 98.3 [degF] 94 /min 116/78 mm[Hg] Not Available [employer] - production 4 [...] SNOMED-CT Code Diagnosis ICD10 Code Diagnosis Note [id number] Sara Clarke MD [facility] - [address] [address] 08/20/2023 14:13:01 08/20/2023 14:51:28 Swelling of finger of right hand [id number] R60.0 Health Concerns Section Related Observation LastModified by Organization Detai ls LastModified Time None Recorded Concern Status LastModified by Organization Details LastModified Time None Recorded Advance Directives Directive None Recorded Payers Insurance Date Sequence Insurance Name Policy Number Policy Winslow Covered Member ID Winslow Member ID Guarantor Name 12/14/2023 1 [facility] - DOS ON OR AFTER 2022 - DUAL ELIGIBLE - [employer] OPTIONS AND ONE CARE (MEDICARE REPLACEMENT/ADV ANTAGE - HMO) Michelle Sheikh [id number] Michelle Sheikh Notes Date Note Type Note [...] ..................... ..................... ..................... ..................... ..................... ..................... ............... Risk Mgr Note From Dash Howell: Dispatched to above [...] finger., limited mobility, rates pain as 9/10. [facility] [place] [place] contacted, spoke with Dr. Clarke, advised of patient complaints and exam findings, advised patient likely need additional I&D, needs to be seen at the ER for this. Patient advised of [facility] [place] [place] recommendations and red flags. Patient reports she will drive herself to the ER for this, refuses ambulance. Patient has no additional questions or concerns at this time. SC8 clear. EOR. ..................... ..................... ..................... ..................... ..................... ..................... ............... Disposition: Fulfilled Sara Clarke MD [address] [facility],[address], [place], [address], [employer] 08/20/2023 14:16:55 OBGyn Episode No OBEpisode recorded.
== END 2024-12-01 07:38 | disposition home or self-care (01) ==
LOC: HO.US 07:37
PROVIDERS: PCP Internal Medicine; Visit Provider Internal Medicine Gastroenterology
DX: K75.81 Nonalcoholic steatohepatitis (NASH) (principal); K74.60 Unspecified cirrhosis of liver; R79.89 Other specified abnormal findings of blood chemistry
CPT/HCPCS: 76705; 76981

== ENCOUNTER → 2024-12-01 07:39 | Outpatient (BNV) | payer OTHER, SELFPAY | PROVIDERS: PCP Internal Medicine; Visit Provider Radiology Diagnostic Radiology | DX: K75.81 Nonalcoholic steatohepatitis (NASH) (principal) | CPT/HCPCS: 76705 ==

== ENCOUNTER 2025-03-06 08:41 | Outpatient (AMB) | payer OTHER, SELFPAY ==
[2025-03-06 08:44] VITALS: BP 142/80; PULSE 84; BMI 39.5
--- NOTE | 2025-03-06 08:44 | A.OFFVIS_ITS ---
Vital Signs 03/06/25 08:44 Height 5 ft 6 in Weight 244 lb 11.41 oz BMI 39.5 BP 142/80 H Blood Pressure Location Lt brachial Position Sitting Pulse 84 Intake Visit Reasons: 6m Intake Note: Iris presents in the office as a 6 month follow up. CC: no concerns at this time. Innovation Analyst Required: No Allergies acetaminophen (Percocet) Allergy (Intermediate, Verified 03/06/25 08:45) Anaphylaxis morphine Allergy (Intermediate, Verified 03/06/25 08:45) Anaphylaxis oxycodone Allergy (Unknown, Verified 03/06/25 08:45) Anaphylaxis HPI HPI 6m: Details: 54 y/o f w/ hx of anxiety, fibromyalgia, asthma, ERIC, and hysterectomy being seen for f/u RECAP: Hx of cholecystectomy and c diff 2017 had vancomycin for c diff EGD/colon 2013- active colitis and mild gastric inflammation tried on PPI, pepcid She was having c/o ongoing abdominal pain, feels like burning, or stabbing sometimes, can be 10/10, going on for 5 years, worse with bending and lifting ongoing trouble swallowing (had u/s neck was normal by PCP) no blood, stool is normal, better since trying metamucil and miralax was given rifaximin with some benefitshe modifies diet which is easily digested kenalog injection given which resolved her abdo pain on right flank she was taking welchol and helped diarrhea At visit:05/06/19=== GERD and diarrhea were well controlle,d she had no complaints VCE was ordered and was normal apart from rapid transit US: 08/2021- fatty liver, renal cysts, labs with nml LFT Ba swallow: 10/2021 hiatal hernia 4 cm with GERD INTERIM: reviewed results of US and labs fatty liver and steatosis she does admit to pain with red meats she stays away from red emats if possible EXAM: GENERAL: The patient is well developed and nontoxic. VITAL SIGNS:see workflow HEENT: Nonicteric sclerae, PERRLA, EOMI. Oropharynx clear. Moist mucous membranes. Conjunctivae appear well perfused. No thyroid mass. CHEST: Chest wall is nontender. HEART: Regular rate and rhythm without murmurs. LUNGS: Clear to auscultation bilaterally. ABDOMEN: Soft, positive bowel sounds, nontender, no organomegaly.no flank tenderness SKIN: No rash, no excessive bruising, petechiae, or purpura. NEUROLOGIC: Cranial nerves II-XII intact without motor/sensory deficit. Psych- nml A/P: 1/ rapid gastric emptying and GERD, some ongoing regurgitation 2/ fatty liver, nml LFT in past 3/ screening colo 4/ red meat intolerance PLAN: 1/ she still refuses EGD and wants to hold on colonoscopy, 2/ discussed low fat diet, and exercise, no evidence of MASH right now, 3/possible alpha gal syndrome, will check [facility] Medical History Asthma Anxiety Fibromyalgia GERD (gastroesophageal reflux disease) History of Holter monitoring Surgical History Hx of hysterectomy Hx of colonoscopy Hx of endoscopy Hx laparoscopic cholecystectomy Family History Father Stomach cancer Brother No problems noted. Sister No problems noted. Son No problems noted. Social History Alcohol intake: never Physical Exam Vital Signs: Last Vital Signs Pulse 84 03/06/25 08:44 BP 142/80 H 03/06/25 08:44 BMI result Body Mass Index 39.5 Assessment & Plan Assessment & Plan (1) Delayed allergic reaction to red meat: Code(s): T78.1XXA - Category: Medical Plan: as above Orders: Orders Other Ref Test - [facility] Today T78.1XXA - Other adverse food reactions, not elsew here classified, initial encounter Coding Level of Care Code Est Pt Level 3 (51737) Diagnoses Delayed allergic reaction to red meat T78.1XXA
== END 2025-03-06 09:34 | disposition home or self-care (01) ==
LOC: HO.HGI 08:41
PROVIDERS: PCP Internal Medicine; Visit Provider Internal Medicine Gastroenterology
DX: T78.19XA Other adverse food reactions, not elsewhere classified, initial encounter (principal)
CPT/HCPCS: 99213

== ENCOUNTER → 2025-03-06 08:41 | Outpatient (BNVA) | payer OTHER, SELFPAY | PROVIDERS: PCP Internal Medicine; Visit Provider Internal Medicine Gastroenterology | DX: T78.19XA Other adverse food reactions, not elsewhere classified, initial encounter (principal) | CPT/HCPCS: 99212 ==

== ENCOUNTER 2025-04-07 10:25 | Outpatient (REF) | payer OTHER, SELFPAY ==
--- OUTSIDE RECORDS SUMMARY | 2025-04-05 23:59 | XMS_ITS | Continuity of Care Document ---
Author Organization [facility] Address [address] [address]- [facility] Name Relationship Address Phone NESHA, IRIS Personal Relationship Unknown Unavai lable ALANA, DAIN Other Unknown Unavailable NESHA, IRIS Personal Relationship Unknown Unavai lable NESHA, IRIS Personal Relationship Unknown Unavai lable NESHA, IRIS Personal Relationship Unknown Unavai lable SANDRA, PARKER child Unknown Unavailable NESHA, IRIS Personal Relationship Unknown Unavai lable NESHA, IRIS Personal Relationship Unknown Unavai lable HUBBARD, NADER spouse Unknown Unavailable Care Team Providers Care Greenhouse Laborer Name Role Phone Allan Simth MD Primary Care Physician [facility])[phone] Encounter [facility] Date(s): 03/29/25 - 04/05/25 [facility] [address] [address] Attending Physician: Allan Smith MD Admitting Physician: Allan Smith MD Referring Physician: Allan Smith MD Encounter Type: One Time OP Allergies, Adverse Reactions, Alerts Substance Criticality Severity Reaction Reaction Severity Status penicillin Active morphine Active oxyCODONE Active predniSONE 1, 2 Acti ve iodinated radiocontrast dyes 3, 4 head felt funny Active Phenergan Dystonia Active Percocet 7.5/325 Act joanna influenza virus vaccine, inactivated paralysis Active 1Patient states I'm not allergic to prednisone I just don't like taking it for too long 2Rash on chest 3Syncope requiring hospital eval. 4 iodine had IVP Immunizations Given and Recorded Vaccine Date Status Refusal Reason pneumococcal 23-valent vaccine 08/24/17 Given pneumococcal 23-valent vaccine 1 09/10/10 Given tetanus/diphtheria/pertussis, acel(Tdap) 05/06/12 Given influenza virus vaccine, inactivated 2 03/11/12 Gi gini influenza virus vaccine, inactivated 3 01/31/11 Gi gini influenza virus vaccine, inactivated 4 03/13/09 Gi gini influenza virus vaccine, inactivated 5 02/01/09 Gi gini influenza virus vaccine, inactivated 6 04/02/07 Gi gini influenza virus vaccine, inactivated 7 05/15/06 Gi gini influenza virus vaccine, inactivated 8 03/07/05 Gi gini 1Admin Note: GIVEN VIS 12/06/96 2Admin Note: VIS 12/03/10 GIVEN 3Admin Note: VIS 12/03/10 GIVEN 4Admin Note: GIVEN H1N1 VACCINE 5Admin Note: GIBSON-RN 6Admin Note: vis 11/14, 7Admin Note: ADM. BY RN 8Admin Note: GIVEN BY NURSE Medications Albuterol (Eqv-Proventil HFA) 90 mcg/inh inhalation aerosol 2 puffs, Inhalation, Every 6 hours, PRN NEEDED FOR WHEEZING OR SHORTNESS OF BREATH, # 6.7 Gm, 5 Refills, Maintenance, 01/20/24 2:57:00 PM EDT, [facility], 168, cm, 01/20/24 14:34:00EDT, Height, 110.3, kg, 08/20/23 11:56:00 EDT, Dry Weight Start Date: 01/20/24 Status: Ordered Medication Dispense Status: Completed Quantity: 6.7 Unit: g Total Allowed Fills: 6 Fills Dispensed: 0 ARIPiprazole 2 mg oral tablet 2 mg, 1, tablet, By Mouth, Daily at bedtime, # 30 tablet, Refills 5, Tot. Refills 5, Maintenance, 05/18/23 3:50:00 PM EST, Route to Pharmacy Electronically, [facility], Partial fill upon patient request if the prescription is for a schedule II opioid drug., 172, cm, 12/22/22 8:04:00 EDT, Height, 118.5, kg, 07/14/22 15:12:00 EST, Dry Weight Start Date: 05/18/23 Stop Date: 11/14/23 Status: Ordered Medication Dispense Status: Completed Quantity: 30.0 Unit: tablet Total Allowed Fills: 6 Fills Dispensed: 0 atorvastatin 40 mg oral tablet 1 tablet = 40 mg, By Mouth, Daily, # 30 tablet, 1 Refills, Maintenance, 08/02/24 2:13:00 PM EDT, Tablet, [facility], Partial fill upon patient request if the prescription is for a schedule II opioid drug., 168, cm, 04/22/24 16:19:00 EST, Height, 110.3, kg, 08/20/23 11:56:00 EDT, Dry Weight Start Date: 08/02/24 Stop Date: 01/24/26 Status: Ordered Medication Dispense Status: Completed Quantity: 30.0 Unit: tablet Total Allowed Fills: 2 Fills Dispensed: 0 BP MONITOR BP MONITOR, See Instructions, # 1 each, Refills 0, Tot. Refills 0, Maintenance, please dispense 1 BP monitor for pt with DX: I 10 Hypertension pt to check Bp 2 times per week, 11/15/18 3:21:52 PM EDT, Compound Start Date: 11/15/18 Status: Ordered Medication Dispense Status: Completed Quantity: 1.0 Unit: each Total Allowed Fills: 1 Fills Dispensed: 0 busPIRone 10 mg oral tablet 10 mg, 1, tablet, By Mouth, 3 times a day, # 90 tablet, Refills 5, Tot. Refills 5, Maintenance, 05/18/23 3:52:00 PM EST, Route to Pharmacy Electronically, [facility], Partial fill upon patient request if the prescription is for a schedule II opioid drug., 172, cm, 12/22/22 8:04:00 EDT, Height, 118.5, kg, 07/14/22 15:12:00 EST, Dry Weight Start Date: 05/18/23 Stop Date: 11/14/23 Status: Ordered Medication Dispense Status: Completed Quantity: 90.0 Unit: tablet Total Allowed Fills: 6 Fills Dispensed: 0 cetirizine 10 mg oral tablet 1 tablet = 10 mg, By Mouth, Once, Take [address] scan with methylprednisolone 32 mg., #1 tablet, 0 Refills, Soft Stop, 08/06/21 12:57:00 PM EDT, Tablet, [id number], Partial fill upon patient request if the prescription is for a schedule II opioid drug., 168, cm, 08/05/21 9:11:00 EDT, Height Start Date: 08/06/21 Status: Ordered Medication Dispense Status: Completed Quantity: 1.0 Unit: tablet Total Allowed Fills: 1 Fills Dispensed: 0 Claritin 10 mg oral tablet 10 mg, 1, tablet, By Mouth, Daily, PRN, # 30 tablet, Refills 11, Tot. Refills 11, Maintenance, allergies, 01/20/24 2:54:00 PM EDT, Route to Pharmacy Electronically, [facility], 168, cm, 01/20/24 14:34:00 EDT, Height, 110.3, kg, 08/20/23 11:56:00 EDT, Dry Weight Start Date: 01/20/24 Stop Date: 01/14/25 Status: Ordered Medication Dispense Status: Completed Quantity: 30.0 Unit: tablet Total Allowed Fills: 12 Fills Dispensed: 0 diclofenac 1% topical gel 1 application, Topically, 4 times a day, # 240 Gm, 5 Refills, Maintenance, 04/22/24 4:52:00 PM EST,Gel, [facility], Partial fill upon patient request if the prescription is for a schedule II opioid drug., 168, cm, 04/22/24 16:19:00 EST, Height, 110.3, kg, 08/20/23 11:56:00 EDT, DryWeight Start Date: 04/22/24 Stop Date: 10/19/24 Status: Ordered Medication Dispense Status: Completed Quantity: 240.0 Unit: g Total Allowed Fills: 6 Fills Dispensed: 0 estradiol 10 mcg vaginal insert See Instructions, Insert 1 tablet vaginally at bedtime x 2 nights/week, # 8 tablet, 11 Refills, Maintenance, 07/09/20 2:55:00 PM EST, [facility], 168, cm, 06/27/20 11:43:00 EST, Height,111.4, kg, 03/28/19 13:11:00 EST, Dry Weight Start Date: 07/09/20 Status: Ordered Medication Dispense Status: Completed Quantity: 8.0 Unit: tablet Total Allowed Fills: 12 Fills Dispensed: 0 Flonase 50 mcg/inh nasal spray 1 sprays, Nares, Both, Daily in AM, # 16 Gm, 0 Refills, Maintenance, 12/04/21 8:59:00 AM EDT, [id number], Partial fill upon patient request if the prescription is for a schedule II opioid drug., 1 sprays Nares, Both Daily in AM, 168, cm, 08/05/21 9:11:00 EDT, Height Start Date: 12/04/21 Status: Ordered Medication Dispense Status: Completed Quantity: 16.0 Unit: g Total Allowed Fills: 1 Fills Dispensed: 0 Indications: Other specified disorders of nose and nasal sinuses; lansoprazole 30 mg oral enteric coated capsule 1 capsule = 30 mg, By Mouth, 2 times a day, # 60 capsule, 5 Refills, Maintenance, 12/16/21 8:28:00 AMEDT, [facility], Partial fill upon patient request if the prescription is for a schedule II opioid drug. Start Date: 12/16/21 Stop Date: 01/15/22 Status: Ordered Medication Dispense Status: Completed Quantity: 60.0 Unit: capsule Total Allowed Fills: 1 Fills Dispensed: 0 LORazepam 1 mg oral tablet 1 tablet = 1 mg, By Mouth, Once, PRN as needed for claustrophobia before MRI, To take 1 pill 60 minutes before MRI, if still anxious, can take another half tab 30 minutes before the test., # 2 tablet, 0 Refills, Soft Stop, 07/21/22 8:44:00 AM EDT, Tablet, [id number], Partial fill upon patient request if the prescription is for a schedule II opioid drug., 172, cm, 07/21/22 8:06:00 EDT, Height, 118.5, kg, 07/14/22 15:12:00 EST, Dry Weight Start Date: 07/21/22 Status: Ordered Medication Dispense Status: Completed Quantity: 2.0 Unit: tablet Total Allowed Fills: 1 Fills Dispensed: 0 losartan 25 mg oral tablet 25 mg, 1, tablet, By Mouth, 2 times a day, # 60 tablet, Refills 3, Tot. Refills 3, Maintenance, 03/17/25 3:32:00 PM EST, Route to Pharmacy Electronically, [facility], Partial fill upon patient request if the prescription is for a schedule II opioid drug., 168, cm, 03/17/25 14:53:00 EST, Height, 108.5, kg, 10/11/24 11:51:00 EDT, Dry Weight Start Date: 03/17/25 Stop Date: 07/15/25 Status: Ordered Medication Dispense Status: Completed Quantity: 60.0 Unit: tablet Total Allowed Fills: 4 Fills Dispensed: 0 MetFORMIN (Eqv-Glucophage XR) 500 mg oral tablet, extended release 1 tablet, By Mouth, Daily at supper, # 30 tablet, 5 Refills, Maintenance, 02/09/23 10:59:00 PM EDT, [id number], 172, cm, 12/22/22 8:04:00 EDT, Height, 118.5, kg, 07/14/22 15:12:00 EST, Dry Weight Start Date: 02/09/23 Status: Ordered Medication Dispense Status: Completed Quantity: 30.0 Unit: tablet Total Allowed Fills: 1 Fills Dispensed: 0 montelukast 10 mg oral tablet See Instructions, TAKE 1 TABLET BY MOUTH DAILY IN THE PM., # 28 tablet, Refills 5, Tot. Refills 5, Soft Stop, 04/12/24 12:21:00 PM EST, Instructions Replace Required Details, Route to Pharmacy Electronically, [facility], 168, cm, 01/20/24 14:34:00 EDT, Height, 110.3, kg, 08/20/23 11:56:00 EDT, Dry Weight Start Date: 04/12/24 Status: Ordered Medication Dispense Status: Completed Quantity: 28.0 Unit: tablet Total Allowed Fills: 6 Fills Dispensed: 0 naproxen 500 mg oral tablet 1 tablet = 500 mg, By Mouth, 2 times a day, PRN Pain , Severe, FOR JOINTS AND FOOT PAIN, # 60 tablet, 2 Refills, Maintenance, 01/22/24 12:17:00 PM EDT, Tablet, [facility], Partial fillupon patient request if the prescription is for a schedule II opioid drug., 168, cm, 01/20/24 14:34:00 EDT, Height, 110.3, kg, 08/20/23 11:56:00 EDT, Dry Weight Start Date: 01/22/24 Stop Date: 04/21/24 Status: Ordered Medication Dispense Status: Completed Quantity: 60.0 Unit: tablet Total Allowed Fills: 3 Fills Dispensed: 0 Pepcid AC Maximum Strength 20 mg oral tablet 20 mg, 1, tablet, By Mouth, Daily at bedtime, # 30 tablet, Refills 6, Tot. Refills 6, Maintenance, 08/06/18 12:44:00 PM EDT, Route to Pharmacy Electronically, [facility] Start Date: 08/06/18 Status: Ordered Medication Dispense Status: Completed Quantity: 30.0 Unit: tablet Total Allowed Fills: 7 Fills Dispensed: 0 prazosin 1 mg oral capsule See Instructions, 1 capsule 1 capsule, By Mouth, Daily at bedtime, for 30 days,,, Refills 0, Maintenance, 06/09/23 9:13:00 AM EST, Instructions Replace Required Details, Partial fill upon patient request if the prescription is for a schedule II opioid drug. Start Date: 06/09/23 Status: Ordered Medication Dispense Status: Completed Total Allowed Fills: 1 Fills Dispensed: 0 rizatriptan 5 mg oral tablet 1 tablet = 5 mg, By Mouth, Daily, may repeat in 2 hours if needed, do not exceed 2 doses in 24 hours, # 12 tablet, 5 Refills, Maintenance, 01/20/24 3:02:00 PM EDT, [facility], Partial fill upon patient request if the prescription is for a schedule II opioid drug., 168, cm, 01/20/24 14:34:00 EDT, Height, 110.3, kg, 08/20/23 11:56:00 EDT, Dry Weight Start Date: 01/20/24 Stop Date: 07/18/24 Status: Ordered Medication Dispense Status: Completed Quantity: 12.0 Unit: tablet Total Allowed Fills: 6 Fills Dispensed: 0 Systane Balance ophthalmic solution 1 drops, Eyes, Both, 2 times a day, PRN for dry eyes, # 10 mL, 5 Refills, Maintenance, 09/20/15 8:19:07 AM EDT, Solution, [facility], 1 drops Eyes, Both 2 times a day,x30 days,PRN:for dry eyes Start Date: 09/20/15 Stop Date: 03/18/16 Status: Ordered Medication Dispense Status: Completed Quantity: 10.0 Unit: mL Total Allowed Fills: 6 Fills Dispensed: 0 Topamax 25 mg oral tablet See Instructions, 1 tab HS x 1 week, then if well tolerated, 1 tablet By Mouth Twice a day, # 60 tablet, 1 Refills, Maintenance, 10/31/24 9:03:00 AM EDT, [facility], Partial fill upon patient request if the prescription is for a schedule II opioid drug., 168, cm, 10/31/24 8:16:00 EDT, Height, 108.5, kg, 10/11/24 11:51:00 EDT, Dry Weight Start Date: 10/31/24 Status: Ordered Medication Dispense Status: Completed Quantity: 60.0 Unit: tablet Total Allowed Fills: 2 Fills Dispensed: 0 Vitamin D3 400 intl units oral capsule 1 capsule = 400 International_Units, By Mouth, Daily, 0 Refills, Maintenance, 12/19/13 2:00:22 PM EDT Start Date: 12/19/13 Status: Ordered Medication Dispense Status: Completed Total Allowed Fills: 1 Fills Dispensed: 0 Voltaren Arthritis Pain 1% topical gel = 2 Gm, Topically, 4 times a day, PRN Pain , Severe, # 240 Gm, 5 Refills, Maintenance, 01/26/24 5:18:00 PM EDT, [facility], Partial fill upon patient request if the prescription is fora schedule II opioid drug., 2 Gm Topically 4 times a day,x30 days,PRN:Pain , Severe, 168, cm, 01/20/24 14:34:00 EDT, Height, 110.3, kg, 08/20/23 11:56:00 EDT, Dry Weight Start Date: 01/26/24 Stop Date: 07/24/24 Status: Ordered Medication Dispense Status: Completed Quantity: 240.0 Unit: g Total Allowed Fills: 6 Fills Dispensed: 0 Wixela Inhub 250 mcg-50 mcg inhalation powder 1 inhalation, Inhalation, 2 times a day, rinse mouth and throat after use, # 60 each, 5 Refills, Maintenance, 05/10/24 4:48:00 PM EST, Powder, [facility], Partial fill upon patient request if the prescription is for a schedule II opioid drug., 1 inhalation Inhalation 2 times a day,x30 days,Instr:rinse mouth and throat after use, 168, cm, 04/22/24 16:19:00 EST, Height, 110.3, kg, 08/20/23 11:56:00 EDT, Dry Weight Start Date: 05/10/24 Stop Date: 11/06/24 Status: Ordered Medication Dispense Status: Completed Quantity: 60.0 Unit: each Total Allowed Fills: 6 Fills Dispensed: 0 Zepbound 2.5 mg/0.5 mL subcutaneous solution = 2.5 mg, Subcutaneous Injection, Every week, rotate injection sites. Call PCP in 4 weeks for dose uptitration., # 2 mL, 0 Refills, Maintenance, 03/17/25 3:19:00 PM EST, Solution, [facility], Partial fill upon patient request if the prescription is for a schedule II opioid drug., 168, cm, 03/17/25 14:53:00 EST, Height, 108.5, kg, 10/11/24 11:51:00 EDT, Dry Weight Start Date: 03/17/25 Stop Date: 04/16/25 Status: Ordered Medication Dispense Status: Completed Quantity: 2.0 Unit: mL Total Allowed Fills: 1 Fills Dispensed: 0 Problem List Condition Confirmation Course Effective Dates Status H ealth Status Informant Elevated alkaline phosphatase level 1 Confirmed Active ROBERT positive Confirmed Active Asthma 2, 3 Confirmed Active Atopic dermatitis, flexural 4 Confirmed Active Postmenopause atrophic vaginitis Confirmed Active Tarsal tunnel syndrome, bilateral 5, 6 Confirmed Active Bilateral occipital neuralgia Confirmed Active Chronic constipation 7 Confirmed 12/30/10 Active Clostridium difficile diarrhea 8, 9 Confirmed 12/11/17 Active 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, 15 Confirmed 01/29/14 Active Intermittent low back pain Confirmed Active Migraine with aura, not intractable Confirmed Active Mixed anxiety and depressive disorder 16, 17, 18, 19 Confirmed Active Mixed incontinence urge and stress 20 Confirmed Active Morbid Obesity Confirmed Active Polyarthralgia Confirmed Active Neck swelling 21 Confirmed Active Submandibular swelling--> US(06/29)(The area of palpable abnormality on each side of the neck corresponds to a normal size and morphology lymph node) Confirmed Active Osteoarthritis of elbows, bilateral 22 Confirmed 06/29/20 Active Primary osteoarthritis of right knee Confirmed Active Panic disorder Confirmed Active *[facility] [phone] DIRECTORY OPERATOR MARTY REYNA Confirmed Active Periumbilical pain Confirmed Active Bilateral plantar fasciitis 23 Confirmed Active Pneumococcal vaccine adverse reaction Confirmed Active Prediabetes Confirmed 12/12/20 Active Fever of unknown origin (FUO) Confirmed Active Recurrent major depression 24 Confirmed Active Scoliosis of lumbar spine Confirmed 10/12/24 Active Severe obesity Confirmed Active Fatty liver Confirmed Active Leg swelling Confirmed Active Syncope 25 Confirmed Active Vitamin D insufficiency Confirmed Active 1Additional studies shows normal alkaline phosphatase isoenzymes, normal GGTP. 2June 2011-Negative methacholine challenge, the FEV1 has to fall by 20% to be considered significant(it fell by 10%). The study was positive for coughing, throat clearing, and eyes/nose running, but she had no significant decline in FEV1. 3normal PFTs in 2010 4On EpiCeram and triamcinolone. 5S/P steroid inj. to both tarsal tunnel by Dr. Pierre with excellent outcome. 6Sees Dr. Jose Blankenship for foot care. 7Colonoscopy 10/18/13-Mild active colitis at ce cum on biopsy, otherwise unremarkable. 8Correction to above, rifaximin was 550 mg TID 9S/P vancomycin 125 mg Q6H for 10 days, then rifaximin 550mg BID for 2 weeks with some benefit. 10Follows with PMR 11follows with ATC 12008/06/2020: Holter monitor for 48 hours: Predominant rhythm is normal sinus, average heart rate is 74/min, heart rate variation is from 59 bpm to 105 bpm. There are rare PACs, one supraventricular triplet and no sustained supraventricular arrhythmias. There were rare PVCs and one ventricular couplet and no sustained ventricular arrhythmias. There were no significant pauses or high degree AV block. 13Holter was essentially normal 1401/15: 24 hour ambulatory EEG is normal. 15Evaluated by CT whioh was normal, EEG with sleep was unremarkable. Seen by Dr. Selvin Calderón from Neuro who has recommended MRI and ambulatory EEG which is pending for now.l Also started on Keppra. 16Tried paroxetin 20 mg, was having compulsive thoughts of hurting other people. 17Off citalopram due to labile BP and palpitations...got imrpoved. 18Off wellbutrin due to seizures risk... hasn't noted sensory seizures. 19Sees Dr. Martínez for psychiatry. Seeing Gurmeet Al, Q2 weeks. 20Seen urogyn 21Ultrasound neck from 01/07/2021: IMPRESSION: 1. Normal ultrasound of the thyroid gland. 2. No worrisome mass or other pathology identified on either side of the neck. 22Right: Tiny coronoid process spur. Otherwise no significant arthritic changes. 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 23S/P steroid inj. by Dr. Pierre with good response. 24Psychiatrist discontinued Celexa and Wellbutrin due to concern for palpitation as a side effect 25Holter 48 hours: predominant sinus rhythm, rare V.Ectopy and occasional SV Ectopy Social History Social History Type Response Smoking Status Never (less than 100 in lifetime) entered on: 01/20/24 Sexual Orientation Self described orien tation: ; Straight or heterosexual Sex Sex Representation Female (finding) Patient Care team information Care Team Personnel Name: Sarah GOMEZ, Allan Hooker Position: [facility] Physician - Primary Care Member Role: PCP Address: [address] [place] [address] [place] [address]- Telecom: Care Team Related Persons Name: PARKER FLORES Name: ADIN AL Name: NADER HUBBARD Insurance Providers Guarantor name: [facility] Plan Information #: 1 Payer: [facility] ONE CARE Payer Identifier: NA Member Number: [id number] Group Number: [id number] Subscriber Identifier: [id number] Relationship to Subscriber: self Coverage Type: Medicare Managed Care (Includes Medicare Advantage Plans) Coverage Verification Date: NA Telecom: NA Address:
--- OUTSIDE RECORDS SUMMARY | 2025-04-07 10:28 | XMS_ITS | Clinical Summary ---
Author Organization [facility] ity Address [address] [place] [address] Care Team Providers Care Watershed Manager Name Role Phone Unavailable Primary Care Provider [...] 09/10/2019 Zoster Vaccines (1 of 2) 09/10/2019 Depression Screening 05/11/2024 COVID-19 Vaccine (1 - 2024-2 6 season) 2025 Influenza Vaccine (#1) 2025 RSV Immunization Adult Patie nts (1 - 1-dose 75+ series) 2044 HIB Vaccines Aged Out No longer eligi [...]
[2025-04-11 17:18] LABS: Allergen, Galactose-Alpha 1,3 <0.10 kU/L (<0.10)
== END 2025-04-07 10:26 | disposition home or self-care (01) ==
LOC: HO.LAB 10:25
PROVIDERS: Visit Provider Internal Medicine Gastroenterology
DX: T78 Adverse effects, not elsewhere classified (principal)
CPT/HCPCS: 36415; 86008